=== PATIENT | male | born 1945 | race African-American/Black ===

== ENCOUNTER 2023-09-28 14:59 | Emergency (ER) | payer OTHER ==
[2023-09-28 15:05] VITALS: BP 158/65; PULSE 52; RESP 18; TEMP 97.9; BMI 26.1
[2023-09-28] MEDS ORDERED: IBUPROFEN 600 MG TABLET (FP) PO ONE (16:10)
[2023-09-28] MEDS: IBUPROFEN 600 MG TABLET (FP) PO ONE (16:25)
== END 2023-09-28 17:00 | disposition home or self-care (01) ==
LOC: JER 14:59
DX: M79.661 Pain in right lower leg (principal); M79.89 Other specified soft tissue disorders
CPT/HCPCS: 93971-TC; 99284-25

== ENCOUNTER 2024-01-19 12:02 | Emergency (ER) | payer OTHER ==
[2024-01-19 12:09] VITALS: BP 104/63; PULSE 68; RESP 16; TEMP 97.7; BMI 25.8
== END 2024-01-19 13:19 | disposition home or self-care (01) ==
LOC: JERFT 12:02
DX: M70.31 Other bursitis of elbow, right elbow (principal); M79.89 Other specified soft tissue disorders
CPT/HCPCS: 73070-TC-RT-FY; 99283-25

== ENCOUNTER 2024-02-10 15:08 | Emergency (ER) | payer OTHER ==
[2024-02-10 15:17] VITALS: BP 158/91; PULSE 82; RESP 19; TEMP 98.2; BMI 25.8
[2024-02-10] MEDS ORDERED: ALBUTEROL SO4 2.5/IPRATROPIUM 0.5 INH SOL 3 ML VIAL.NEB. NEB ONE (16:52)
[2024-02-10] MEDS: ALBUTEROL SO4 2.5/IPRATROPIUM 0.5 INH SOL 3 ML VIAL.NEB. NEB ONE ×2 (16:57→17:17)
== END 2024-02-10 17:42 | disposition home or self-care (01) ==
LOC: JERFT 15:08
PROC: 3E0F7GC Introduction of Other Therapeutic Substance into Respiratory Tract, Via Natural or Artificial Opening (ICD-10-PCS; principal; 2024-02-10)
PROC: 3E0F7GC Introduction of Other Therapeutic Substance into Respiratory Tract, Via Natural or Artificial Opening (ICD-10-PCS; 2024-02-10)
DX: J20.9 Acute bronchitis, unspecified (principal); R06.02 Shortness of breath; R05.9 Cough, unspecified; R06.2 Wheezing; R09.81 Nasal congestion
CPT/HCPCS: 71046-TC-FY; 99284-25

== ENCOUNTER 2024-10-29 09:42 | Emergency (ER) | payer OTHER ==
[2024-10-29 10:01] VITALS: BP 137/60; PULSE 65; RESP 20; TEMP 98.1; BMI 25.9
== END 2024-10-29 11:52 | disposition home or self-care (01) ==
LOC: JER 09:42
DX: R06.02 Shortness of breath (principal); T59.811A Toxic effect of smoke, accidental (unintentional), initial encounter; R07.0 Pain in throat; R09.A2 Foreign body sensation, throat; R00.1 Bradycardia, unspecified; X00.1XXA Exposure to smoke in uncontrolled fire in building or structure, initial encounter; Y92.009 Unspecified place in unspecified non-institutional (private) residence as the place of occurrence of the external cause
CPT/HCPCS: 71045-TC-FY; 93005; 93010; 99284-25